=== PATIENT | female | born 1985 | race American Indian/Alaskan Native ===

== ENCOUNTER 2016-12-20 21:32 | Emergency (ER) | payer MEDICAID ==
[2016-12-21 00:04] VITALS: BP 145/98
[2016-12-21] MEDS ORDERED: TYLENOL PO ONE (00:24)
[2016-12-21 00:44] LABS: Basophils % (Auto) 0.1 % (0.0-1.8); Eosinophils % (Auto) 0.6 % (0.0-4.3); Hematocrit 43.8 % (30.3-42.9); Hemoglobin 14.4 gm/dl (10.1-14.3); Mean Corpuscular HGB Conc 33 % (30-34); Mean Corpuscular Hemoglobin 31 pg (28-32); Mean Corpuscular Volume 95 fl (79-97); Platelet Count 256 K/mm3 (140-440); Red Blood Count 4.63 M/mm3 (3.65-5.03); White Blood Count 13.6 K/mm3 (4.5-11.0)
--- NOTE | 2016-12-21 01:41 | Ultrasound Report ---
FINAL REPORT PROCEDURE: US OB \T\lt; = 14 WEEKS FETUS TECHNIQUE: Real-time transabdominal and transvaginal sonography of the uterus, placenta, amniotic fluid, adnexa, and fetus was performed with image documentation. Measurements were obtained to determine age/size. M-mode Doppler was used to document heartbeat. CPT 79493 and 99181 HISTORY: abdominal pain/Fell COMPARISON: No prior studies are available for comparison. FINDINGS: ADDITIONAL GESTATION: None. CRL: 20.9 mm, which corresponds to a gestational age of: 8 weeks, 6 days. Yolk Sac: Normal. Embryonic Cardiac Activity: 173 beats per minute Gestational Sac: There is a small subchorionic bleed identified. Amniotic fluid: Normal. Cervix: Normal. Right Ovary: Normal. Left Ovary: Normal. Estimated delivery date: 07/28/2017 Uterus and adnexa: Normal. IMPRESSION: 1. Single live intrauterine gestation at approximately 8 weeks, 6 days. 2. EDC by US 07/28/2017 3. Complete anatomic survey at 18-20 weeks suggested.
--- NOTE | 2016-12-21 01:42 | Ultrasound Report ---
FINAL REPORT PROCEDURE: PROCEDURE: US OB \T\lt; = 14 WEEKS FETUS TECHNIQUE: Real-time transabdominal and transvaginal sonography of the uterus, placenta, amniotic fluid, adnexa, and fetus was performed with image documentation. Measurements were obtained to determine age/size. M-mode Doppler was used to document heartbeat. CPT 59073 and 16504 HISTORY: abdominal pain/Fell COMPARISON: No prior studies are available for comparison. FINDINGS: ADDITIONAL GESTATION: None. CRL: 20.9 mm, which corresponds to a gestational age of: 8 weeks, 6 days. Yolk Sac: Normal. Embryonic Cardiac Activity: 173 beats per minute Gestational Sac: There is a small subchorionic bleed identified. Amniotic fluid: Normal. Cervix: Normal. Right Ovary: Normal. Left Ovary: Normal. Estimated delivery date: 07/28/2017 Uterus and adnexa: Normal. IMPRESSION: 1. Single live intrauterine gestation at approximately 8 weeks, 6 days. 2. EDC by US 07/28/2017 3. Complete anatomic survey at 18-20 weeks suggested. TECHNIQUE: HISTORY: COMPARISON: FINDINGS: IMPRESSION:
--- NOTE | 2016-12-22 01:02 | ED Elopement Review ---
ED Pt Elopement review - Results review Lab results: Laboratory Tests 12/21/16 12/21/16 12/21/16 00:31 00:31 00:31 WBC 13.6 H RBC 4.63 Hgb 14.4 H Hct 43.8 H MCV 95 MCH 31 MCHC 33 RDW 15.0 Plt Count 256 Lymph % (Auto) 14.4 [place] % (Auto) 6.1 Eos % (Auto) 0.6 Baso % (Auto) 0.1 Lymph # 2.0 [place] # 0.8 Eos # 0.1 Baso # 0.0 Seg Neutrophils % 78.8 H Seg Neutrophils # 10.7 H HCG, Quant 38548 H Blood Type O POSITIVE Antibody Screen Negative - Call Back decision Pt Call Back Decision: Pt to F/U with PMD
== END 2016-12-21 04:50 | disposition left against medical advice (07) ==
LOC: ED 21:32
DX: O9A.211 Injury, poisoning and certain other consequences of external causes complicating pregnancy, first trimester (principal); R10.9 Unspecified abdominal pain; Z3A.10 10 weeks gestation of pregnancy
CPT/HCPCS: 36415; 76801; 76817; 84702; 85025; 86850; 86900; 86901

== ENCOUNTER 2017-03-03 22:28 | Emergency (ER) | payer MEDICAID ==
[2017-03-03] MEDS ORDERED: ZOFRAN ODT ONE (23:31)
[2017-03-03] MEDS ORDERED: ZOFRAN PO ONE ×2 (23:34→23:45)
[2017-03-03] MEDS ORDERED: ZOFRAN ODT PO ONE (23:39)
[2017-03-03 23:51] LABS: Basophils % (Auto) 0.3 % (0.0-1.8); Eosinophils % (Auto) 0.4 % (0.0-4.3); Hematocrit 40.1 % (30.3-42.9); Hemoglobin 13.4 gm/dl (10.1-14.3); Mean Corpuscular HGB Conc 34 % (30-34); Mean Corpuscular Hemoglobin 32 pg (28-32); Mean Corpuscular Volume 94 fl (79-97); Platelet Count 224 K/mm3 (140-440); Red Blood Count 4.27 M/mm3 (3.65-5.03); Red Cell Distribution Width 13.7 % (13.2-15.2); White Blood Count 12.4 K/mm3 (4.5-11.0)
[2017-03-04 00:09] LABS: Anion Gap 18 mmol/L; Blood Urea Nitrogen 6 mg/dL (7-17); Calcium 9.4 mg/dL (8.4-10.2); Carbon Dioxide 21 mmol/L (22-30); Chloride 98.3 mmol/L (98-107); Glucose 112 mg/dL (65-100); Potassium 3.6 mmol/L (3.6-5.0); Sodium 134 mmol/L (137-145)
[2017-03-04 00:46] LABS: Amylase 96 units/L (27-131); Lipase 35 units/L (13-60)
[2017-03-04] MEDS ORDERED: NACL 0.9% 1000 ML 1,000 ML IV ONE (02:35)
--- NOTE | 2017-03-04 03:22 | Emergency Department Report ---
HPI - General Chief Complaint: Nausea/Vomiting/Diarrhea Time Seen by Provider: 03/04/17 02:25 - HPI HPI: 31-year-old female presents today complaining of nausea and vomiting 2 days. Patient is currently 19 weeks and this is her first . Patient has a follow-up appointment with [employer] . Patient is currently taking promethazine without relief. Denies fever, chills, chest pain, shortness of breath, abdominal pain, vaginal bleeding or discharge, burning upon urination, increased urinary frequency or urgency, blood in urine. ED Past Medical Hx - Past Medical History Previous Medical History?: Yes Hx Asthma: Yes - Surgical History Past Surgical History?: No - Social History Smoking Status: Never Smoker Substance Use Type: None - Medications Home Medications: Home Medications Medication Instructions Recorded Confirmed Last Taken Type Doxylamine/Pyridoxine HCl 2 each PO QHS #40 tablet. 03/04/17 Unknown Rx [Ryne Aguiar 10-10 mg Tablet] ED Review of Systems ROS: Stated complaint: 19WKS PREG/NAUSEA/VOMITING Other details as noted in HPI Constitutional: denies: chills, fever, malaise Eyes: denies: eye pain ENT: denies: ear pain, throat pain, congestion Respiratory: denies: cough, shortness of breath, wheezing Cardiovascular: denies: chest pain, palpitations Endocrine: no symptoms reported Gastrointestinal: nausea, vomiting. denies: abdominal pain Genitourinary: denies: urgency, dysuria, frequency, hematuria, discharge, other (baginal bleeding) Neurological: denies: headache, weakness Physical Exam - Physical Exam Vital Signs: Vital Signs 03/03/17 23:20 Temperature 98.6 F Pulse Rate 110 H Respiratory 18 Rate Blood Pressure 128/89 Blood Pressure 128/89 [Left] O2 Sat by Pulse 97 Oximetry Physical Exam: GENERAL: The patient is well-developed and well-nourished. Patient is in NAD. HEAD: Normocephalic. Atraumatic. EYES: PERRL. NOSE: Normal nasal mucosa with no nasal discharge. THROAT: No erythema, swelling or exudates. Dry mucous membrane. NECK: Supple, nontender, without lymphadenopathy. CHEST/LUNGS: Clear to auscultation throughout. HEART/CARDIOVASCULAR: Regular rate and rhythm. No murmurs, rubs or gallops. ABDOMEN: Abdomen is gravid, nontender. Bowel sounds normoactive. No guarding or rebound tenderness. EXTREMITIES: Peripheral pulses intact. Capillary refill less than 2 seconds. NEURO: Alert and oriented x 3. Normal gait. ED Course Vital Signs 03/03/17 23:20 Temperature 98.6 F Pulse Rate 110 H Respiratory 18 Rate Blood Pressure 128/89 Blood Pressure 128/89 [Left] O2 Sat by Pulse 97 Oximetry - Reevaluation(s) Reevaluation #1: 03/04/17 03:56 At time of reevaluation, patient reports some symptomatic relief. ED Medical Decision Making - Lab Data Result diagrams: 03/03/17 23:35 03/03/17 23:35 Vital Signs 03/03/17 03/04/17 23:20 03:39 Temperature 98.6 F Pulse Rate 110 H 95 H Respiratory 18 18 Rate Blood Pressure 128/89 Blood Pressure 128/89 120/80 [Left] O2 Sat by Pulse 97 99 Oximetry Lab Results 03/03/17 03/03/17 03/03/17 Range/Units 23:35 23:35 23:35 WBC 12.4 H (4.5-11.0) K/mm3 RBC 4.27 (3.65-5.03) M/mm3 Hgb 13.4 (10.1-14.3) gm/dl Hct 40.1 (30.3-42.9) % MCV 94 (79-97) fl MCH 32 (28-32) pg MCHC 34 (30-34) % RDW 13.7 (13.2-15.2) % Plt Count 224 (140-440) K/mm3 Lymph % (Auto) 18.1 (13.4-35.0) % [place] % (Auto) 7.8 H (0.0-7.3) % Eos % (Auto) 0.4 (0.0-4.3) % Baso % (Auto) 0.3 (0.0-1.8) % Lymph # 2.2 (1.2-5.4) K/mm3 [place] # 1.0 H (0.0-0.8) K/mm3 Eos # 0.1 (0.0-0.4) K/mm3 Baso # 0.0 (0.0-0.1) K/mm3 Seg Neutrophils % 73.4 H (40.0-70.0) % Seg Neutrophils # 9.1 H (1.8-7.7) K/mm3 Sodium 134 L (137-145) mmol/L Potassium 3.6 (3.6-5.0) mmol/L Chloride 98.3 (98-107) mmol/L Carbon Dioxide 21 L (22-30) mmol/L Anion Gap 18 mmol/L BUN 6 L (7-17) mg/dL Creatinine 0.6 L (0.7-1.2) mg/dL Estimated GFR > 60 ml/min BUN/Creatinine Ratio 10.00 % Glucose 112 H (65-100) mg/dL Calcium 9.4 (8.4-10.2) mg/dL Amylase 96 (27-131) units/L Lipase 35 (13-60) units/L - Medical Decision Making 31-year-old female presents today with nausea and vomiting during . Patient was given IV fluids and Zofran and reported some symptomatic relief post medication and fluid administration. Patient is recommended to follow up with her [facility]. Patient is in no acute distress at this time. She will be discharged home and is encouraged to follow up with a primary care provider. She will be sent home on Diclegis and is encouraged to return to the emergency room for any worsening symptoms. Critical care attestation.: If time is entered above; I have spent that time in minutes in the direct care of this critically ill patient, excluding procedure time. ED Disposition Clinical Impression: Nausea and vomiting during Disposition: DISCHARGED TO HOME OR SELFCARE Is pt being admited?: No Does the pt Need Aspirin: No Condition: Stable Instructions: Morning Sickness (ED), Acute Nausea and Vomiting (ED), (ED) Additional Instructions: Follow-up with [facility]. Return to the emergency department if symptoms worsen. Prescriptions: Doxylamine/Pyridoxine HCl [Ryne Aguiar 10-10 mg Tablet] 2 each PO QHS #40 tablet. Referrals: MARCI SIMPSON MD [Primary Care Provider] - 3-5 Days HERMANN VALENTIN MD [Staff Physician] - 3-5 Days Forms: Work/School Release Form(ED) Time of Disposition: 03:55
[2017-03-04 03:40] VITALS: BP 120/80
== END 2017-03-04 04:15 | disposition home or self-care (01) ==
LOC: ED 22:28
DX: O21.9 Vomiting of pregnancy, unspecified (principal); R11.0 Nausea; O99.512 Diseases of the respiratory system complicating pregnancy, second trimester; Z3A.19 19 weeks gestation of pregnancy
CPT/HCPCS: 36415; 80048; 82150; 83690; 85025; 96360; 99283; J7030; Q0162

== ENCOUNTER 2017-03-19 13:29 | Outpatient (CLI) | payer MEDICAID ==
[2017-03-19] MEDS ORDERED: LACTATED RINGERS 1,000 ML IV ONE (14:02)
[2017-03-19] MEDS ORDERED: ZOFRAN IV ONE (14:02)
[2017-03-19] MEDS ORDERED: LOMOTIL PO ONE (14:02)
[2017-03-19 14:37] LABS: Bilirubin,Urine NEG (Negative); Blood,Urine NEG (Negative); Ketones,Urine 20 mg/dL (Negative); Leukocyte Esterase,Urine NEG (Negative); Mucus,Urine 1+ /HPF; Nitrite,Urine NEG (Negative); Urobilinogen,Urine < 2.0 mg/dL (<2.0)
[2017-03-19 15:04] LABS: Basophils % (Auto) 0.3 % (0.0-1.8); Eosinophils % (Auto) 0.4 % (0.0-4.3); Hematocrit 41.5 % (30.3-42.9); Hemoglobin 13.8 gm/dl (10.1-14.3); Mean Corpuscular HGB Conc 33 % (30-34); Mean Corpuscular Hemoglobin 32 pg (28-32); Mean Corpuscular Volume 96 fl (79-97); Platelet Count 227 K/mm3 (140-440); Red Blood Count 4.31 M/mm3 (3.65-5.03); White Blood Count 11.8 K/mm3 (4.5-11.0)
[2017-03-19 15:23] LABS: Alanine Aminotransferase 33 units/L (7-56); Albumin 3.9 g/dL (3.9-5); Albumin/Globulin Ratio 1.3 %; Alkaline Phosphatase 79 units/L (35-129); Anion Gap 19 mmol/L; Blood Urea Nitrogen 5 mg/dL (7-17); Calcium 9.6 mg/dL (8.4-10.2); Carbon Dioxide 23 mmol/L (22-30); Chloride 98.3 mmol/L (98-107); Glucose 98 mg/dL (65-100); Potassium 4.6 mmol/L (3.6-5.0); Sodium 136 mmol/L (137-145); Total Protein 6.8 g/dL (6.3-8.2)
[2017-03-19] MEDS ORDERED: TYLENOL PO ONE (15:40)
[2017-03-20 12:13] VITALS: BP 112/67
== END 2017-03-19 16:40 | disposition home or self-care (01) ==
LOC: TRG 13:29
PROVIDERS: ATTEND Obstetrics & Gynecology
DX: Z34.92 Encounter for supervision of normal pregnancy, unspecified, second trimester (principal); Z3A.21 21 weeks gestation of pregnancy
CPT/HCPCS: 36415; 80053; 81001; 85025; 96360; 96374; J2405; J7120

== ENCOUNTER 2017-05-30 19:58 | Emergency (ER) | payer MEDICAID ==
[2017-05-30] MEDS ORDERED: NACL 0.9% 1000 ML 1,000 ML IV ONE (20:31)
[2017-05-30] MEDS ORDERED: ZOFRAN IV ONE (20:31)
--- NOTE | 2017-05-30 20:33 | Emergency Department Report ---
HPI - General Chief Complaint: Nausea/Vomiting/Diarrhea Time Seen by Provider: 05/30/17 20:21 - HPI HPI: This is a 31-year-old Afro-[place] female presents to the emergency department by EMS from home with complaint of nausea and vomiting and some mild lower abdominal discomfort while over the past few days. The patient is at about 31 weeks. She has been using Zofran that her secondary to some hyperemesis episodes but she ran out 2 days ago. She called her [employer] at my [employer] and was told to come to the emergency department for further evaluation. She had 4 episodes of vomiting today and the last one lead to a small amount of hematemesis. She denies any vaginal bleeding, vaginal discharge , dysuria, fever. She otherwise only has a past medical history of asthma. Her [employer] is Dr. Estrada. No recent travel or sick contacts at home. ED Past Medical Hx - Past Medical History Previous Medical History?: Yes Hx Hypertension: No Hx Diabetes: No Hx Deep Vein Thrombosis: No Hx Renal Disease: No Hx Sickle Cell Disease: No Hx Seizures: No Hx Asthma: Yes Hx HIV: No Additional medical history: Hyperemesis gravidarum - Surgical History Past Surgical History?: No - Social History Smoking Status: Never Smoker Substance Use Type: None - Medications Home Medications: Home Medications Medication Instructions Recorded Confirmed Last Taken Type Vit-Fe Fumar-FA [ 1 tab PO QDAY 03/19/17 03/19/17 03/18/17 09: 00 History Vitamin] 1 Zofran ODT TAB 1 tab PO Q8H PRN #12 05/31/17 Unknown Rx ED Review of Systems ROS: Stated complaint: VOMITING Other details as noted in HPI Comment: All other systems reviewed and negative Constitutional: denies: chills, fever Eyes: denies: eye pain, eye discharge, vision change ENT: denies: ear pain, throat pain Respiratory: denies: cough, shortness of breath, wheezing Cardiovascular: denies: chest pain, palpitations Gastrointestinal: abdominal pain, nausea, vomiting, hematemesis Genitourinary: denies: urgency, dysuria, discharge Musculoskeletal: denies: back pain, joint swelling, arthralgia Skin: denies: rash, lesions Neurological: denies: headache, weakness, paresthesias Physical Exam - Physical Exam Vital Signs: Vital Signs 05/30/17 20:09 Temperature 98.0 F Pulse Rate 101 H Respiratory 17 Rate Blood Pressure 139/86 [Left] O2 Sat by Pulse 100 Oximetry Physical Exam: GENERAL: The patient is well-developed well-nourished. HEENT: Normocephalic. Atraumatic. Extraocular motions are intact. Patient has moist mucous membranes. Pupils equal reactive to light bilaterally. NECK: Supple. Trachea is midline. CHEST/LUNGS: Clear to auscultation. There is no respiratory distress noted. HEART/CARDIOVASCULAR: Regular. There is no tachycardia. There is no gallop rub or murmur. ABDOMEN: Abdomen is soft, nontender. Patient has normal bowel sounds. There is no abdominal distention. Gravid uterus is palpable to the mid upper abdomen. SKIN: Skin is warm and dry. NEURO: The patient is awake, alert, and oriented. The patient is cooperative. The patient has no focal neurologic deficits. The patient has normal speech. MUSCULOSKELETAL: There is no tenderness or deformity. There is no limitation range of motion. There is no evidence of acute injury. ED Course Vital Signs 05/30/17 20:09 Temperature 98.0 F Pulse Rate 101 H Respiratory 17 Rate Blood Pressure 139/86 [Left] O2 Sat by Pulse 100 Oximetry ED Medical Decision Making - Lab Data Result diagrams: 05/30/17 23:23 05/30/17 23:23 - Radiology Data Radiology results: report reviewed Right upper quadrant abdominal ultrasound shows layering gallbladder sludge without wall thickening or additional evidence of cholecystitis. Obstetric ultrasound shows a single living intrauterine at about 32 weeks and 4 days. No evidence of acute complications. - Medical Decision Making 31-year-old female with a history of hyperemesis presents with nausea and vomiting since she has run out of her Zofran. Her labs are grossly unremarkable. Obstetric ultrasound shows a live intrauterine at 32 weeks. Right upper quadrant ultrasound shows some gallbladder sludge but no signs of cholecystitis. Vital signs stable throughout ED course. She given some IV fluid and a dose of Zofran. She has now been able to keep down 2 glasses of water without any recurrence of nausea or vomiting. She will follow- up with her [employer] on Thursday. - Differential Diagnosis , hyperemesis, miscarriage, food poisoning Critical Care Time: No Critical care attestation.: If time is entered above; I have spent that time in minutes in the direct care of this critically ill patient, excluding procedure time. ED Disposition Clinical Impression: Hyperemesis gravidarum, Gallbladder sludge Qualifiers: Weeks of gestation: 32 weeks Qualified Code(s): Z3A.32 - 32 weeks gestation of Disposition: TO HOME OR SELFCARE Is pt being admited?: No Condition: Stable Instructions: (ED), Hyperemesis Gravidarum (ED) Additional Instructions: Please follow-up with your [employer] on Thursday. Return to the emergency department with the inability to keep down fluids and stay hydrated, worsening of your symptoms, or any acute distress. Prescriptions: Zofran ODT TAB 1 tab PO Q8H PRN #12 PRN Reason: Nausea Referrals: MARCI SIMPSON MD [Staff Physician] - [facility] Time of Disposition: 01:48
--- NOTE | 2017-05-30 21:26 | Ultrasound Report ---
FINAL REPORT EXAM: US ABDOMEN LIMITED HISTORY: abd pain, N/V COMPARISONS: None FINDINGS: Grayscale ultrasound evaluation of the right upper abdomen Liver is normal in size and contour. Hepatic parenchymal echogenicity is within normal limits. No parenchymal lesion identified. No intra or extrahepatic biliary ductal dilatation. The common duct measures approximately 4 millimeters in caliber. Layering gallbladder sludge is present without focal echogenic shadowing stone identified. Gallbladder wall measures approximately 1-2 millimeters. Imaged portion of the pancreatic head is sonographically unremarkable. The remainder of the pancreas is not well seen secondary to overlying bowel gas. Imaged portions of the aorta and inferior vena cava are within normal limits. No abdominal ascites or free fluid in Morison's pouch. The right kidney measures up to 11.5 cm in length and is without hydronephrosis or echogenic shadowing foci to suggest nephrolithiasis. IMPRESSION: Layering gallbladder sludge without wall thickening or additional evidence of cholecystitis. Consider nuclear medicine hepatobiliary scan for more specific evaluation as warranted.
--- NOTE | 2017-05-30 21:55 | Ultrasound Report ---
FINAL REPORT EXAM: US OB FOLLOW UP HISTORY: Preg, abd pain COMPARISONS: Limited abdominal ultrasound of the same date, pelvic ultrasound 12/21/2016 FINDINGS: Limited transabdominal 3rd trimester ultrasound Single living intrauterine with recorded cardiac activity of 156 beats per minute. Composite measurements correspond to estimated gestational age of 32 weeks 4 days and delivery date of 07/21/2017, which are concordant with 1st trimester ultrasound dating. The cervix appears closed and measures approximately 3.4 cm in length. Amniotic fluid volume is subjectively normal and amniotic fluid index measures approximately 9 cm. Presentation is cephalic. No evidence of placenta previa on this examination. IMPRESSION: Single living intrauterine with concordant size and dates and no evident acute complication.
[2017-05-30 23:25] LABS: Bacteria,Urine 1+ /HPF (Negative); Bilirubin,Urine NEG (Negative); Blood,Urine NEG (Negative); Ketones,Urine 20 mg/dL (Negative); Leukocyte Esterase,Urine NEG (Negative); Mucus,Urine FEW /HPF; Nitrite,Urine NEG (Negative); Urobilinogen,Urine < 2.0 mg/dL (<2.0); WBC,Urine < 1.0 /HPF (0.0-6.0)
[2017-05-31 00:37] LABS: Basophils % (Auto) 0.1 % (0.0-1.8); Eosinophils % (Auto) 0.5 % (0.0-4.3); Hematocrit 35.2 % (30.3-42.9); Mean Corpuscular HGB Conc 34 % (30-34); Mean Corpuscular Hemoglobin 33 pg (28-32); Mean Corpuscular Volume 97 fl (79-97); Platelet Count 184 K/mm3 (140-440); Red Blood Count 3.64 M/mm3 (3.65-5.03); Red Cell Distribution Width 13.7 % (13.2-15.2); White Blood Count 8.7 K/mm3 (4.5-11.0)
[2017-05-31 01:03] LABS: Alanine Aminotransferase 10 units/L (7-56); Albumin 3.4 g/dL (3.9-5); Albumin/Globulin Ratio 1.2 %; Alkaline Phosphatase 86 units/L (35-129); Anion Gap 18 mmol/L; Blood Urea Nitrogen 4 mg/dL (7-17); Calcium 8.8 mg/dL (8.4-10.2); Carbon Dioxide 20 mmol/L (22-30); Chloride 100.2 mmol/L (98-107); Glucose 83 mg/dL (65-100); Potassium 3.3 mmol/L (3.6-5.0); Sodium 135 mmol/L (137-145); Total Protein 6.2 g/dL (6.3-8.2)
[2017-05-31] MEDS ORDERED: NACL 0.9% 500 ML 500 ML IV ONE (01:07)
[2017-05-31] MEDS ORDERED: K-DUR PO ONE (01:08)
[2017-05-31 01:55] VITALS: BP 114/66
== END 2017-05-31 02:06 | disposition home or self-care (01) ==
LOC: ED 19:58
DX: O21.0 Mild hyperemesis gravidarum (principal); O26.893 Other specified pregnancy related conditions, third trimester; K82.9 Disease of gallbladder, unspecified; J45.909 Unspecified asthma, uncomplicated; Z3A.32 32 weeks gestation of pregnancy
CPT/HCPCS: 36415; 76705; 76816; 80053; 81001; 81025; 83690; 85025; 96361; 96374; 99284; J2405; J7040

== ENCOUNTER 2021-10-17 08:36 | Observation (INO) | payer MEDICAID ==
[2021-10-17] MEDS ORDERED: ONDANSETRON 4 MG/2 ML INJ IV PRN (08:38)
[2021-10-17] MEDS ORDERED: PROMETHAZINE 25 MG RECT SUPP PR SCH (09:00)
[2021-10-17] MEDS ORDERED: POTASSIUM CHLORIDE 10 MEQ 10 MEQ/100 ML BAG IV PRN (09:00)
[2021-10-17] MEDS ORDERED: D5W/LACTATED RINGERS 1,000 ML IV SCH (09:00)
[2021-10-17] MEDS ORDERED: PRENATAL VIT27-FE FUMARATE-FOLIC ACID VIT TAB PO SCH (10:00)
[2021-10-17] MEDS: D5W/LACTATED RINGERS 1,000 ML IV SCH ×2 (11:30→18:20)
[2021-10-17] MEDS: METOCLOPRAMIDE 10 MG/2 ML INJ IV SCH (11:31)
[2021-10-17] MEDS ORDERED: ACETAMINOPHEN 500 MG TAB PO ONE (12:00)
--- NOTE | 2021-10-17 12:33 | History and Physical Report ---
History of Present Illness Date of examination: 10/17/21 Date of admission: 10/17/21 09:36 Chief complaint: I can't keep food or water down History of present illness: Pt is a 35 year old AMILCAR 04/23/2022 at 13w1d presents from home with complaint of nausea,vomiting, and inability to tolerate solids or liquids for the past two days. She reports that she typically takes Zofran daily, but ran out 2 days ago. She also reports nasal congestion, stuffy nose and cough. She has had one visit at [facility] on 10/03/21 with a h/o morbid obesity, genital herpes, previous x2. She denies vaginal bleeding. She does report that her daughter "is getting over a cold," and she recently developed cold symptoms. RN report pt has a temp of ~102 on admission. Past History Past Medical History: asthma Past Surgical History: section Social history: no significant social history - Obstetrical History Expected Date of Delivery: 04/23/22 Actual Gestation: 13 Week(s) 1 Day(s) : 3 Para: 2 Hx # Term Pregnancies: 2 Number of Pregnancies: 0 Spontaneous Abortions: 0 Induced : 0 Number of Living Children: 2 Medications and Allergies Allergies Allergy/AdvReac Type Severity Reaction Status Date / Time No Known Allergies Allergy Verified 03/19/17 13:57 Home Medications Medication Instructions Recorded Confirmed Last Taken Type Low Iron Tablet 325 PO DAILY 08/19/19 Unknown History Docusate Sodium [Colace] 100 mg PO BID PRN #60 capsule 08/20/19 Unknown Rx Ibuprofen [Motrin] 800 mg PO Q8HR PRN #40 tablet 08/20/19 Unknown Rx oxyCODONE /ACETAMINOPHEN [Percocet 2 tab PO Q6HR PRN #40 tablet 08/20/19 Unknown Rx 5/325] Active Meds: Active Medications Dextrose/Lactated Ringer's (D5lr) 1,000 mls @ 500 mls/hr IV DIRECT DORIS Stop: 10/18/21 10:59 Dextrose/Lactated Ringer's (D5lr) 1,000 mls @ 150 mls/hr IV DIRECT DORIS Last Admin: 10/17/21 11:30 Dose: 150 mls/hr Documented by: Potassium Chloride (Kcl 10meq/100ml) 10 meq in 100 mls @ 100 mls/hr IV Q1H PRN PRN Reason: SEE COMMENTS Metoclopramide HCl (Metoclopramide 10 Mg/2 Ml Inj) 10 mg IV Q6H [facility] Last Admin: 10/17/21 11:31 Dose: 10 mg Documented by: Multivitamins/Iron/Calcium ( [id number] Fumarate-Folic Acid Vit Tab) 1 each PO QDAY DORIS Ondansetron HCl (Ondansetron 4 Mg/2 Ml Inj) 4 mg IV Q6H PRN PRN Reason: N/V unrelieved by Regxander Promethazine HCl (Promethazine 25 Mg Rect Supp) 25 mg IA Q6H DORIS Review of Systems All systems: negative Constitutional: fatigue, weakness Eyes: deferred Ears, nose, mouth and throat: nasal congestion, hoarseness Respiratory: cough, no shortness of breath Breasts: deferred Gastrointestinal: nausea, vomiting - Physical Exam Breasts: Positive: deferred Abdomen: Positive: soft (obesity ) Results All other labs normal. Assessment and Plan A: IUP at 13w1d Hyperemesis Febrile morbidity, nasal congestion, cough Morbid Obesity Asthma P: Admit for observation COVID test when available, make PUI until then given recent increase in Omicron variant numbers CBC, BMP, Hepatitis panel, TSH, amylase, lipase CXR, blood culture, urine culture IV fluids Antiemetics PRN Closely monitor clinical status
--- NOTE | 2021-10-17 12:56 | XRay Report ---
CHEST 1 VIEW 10/17/2021 11:43 AM INDICATION / CLINICAL INFORMATION: cough, fever, congestion. COMPARISON: None available. FINDINGS: SUPPORT DEVICES: None. HEART / MEDIASTINUM: No significant abnormality. LUNGS / PLEURA: No significant pulmonary or pleural abnormality. No pneumothorax. ADDITIONAL FINDINGS: No significant additional findings. IMPRESSION: No acute abnormality. Signer Name: Stas Choi MD Signed: 10/17/2021 12:51 PM Workstation Name: [id number]
[2021-10-17] MEDS ORDERED: FLU VACC QUAD 2021-22(6MOS UP)/PF 60 MCG/0.5 ML SYRINGE IM ONE (12:58)
--- NOTE | 2021-10-17 15:55 | Ultrasound Report ---
ULTRASOUND OBSTETRIC INDICATION / CLINICAL INFORMATION: IUP at 13 wks, hyper. Clinical Gestational Age (GA) in weeks, days: 13 weeks 1 day TECHNIQUE: Transabdominal. COMPARISON: None available. FINDINGS: GESTATIONAL SAC: Well-defined oval shape and intrauterine in location. YOLK SAC: Not identified, likely due to age. EMBRYO/FETUS: No significant abnormality. - [place]-Rump Length = 7.9 cm = 13.6 weeks, days - Heart Rate, beats per minute (if present) = 176 BPM ADNEXA: No significant abnormality. FREE FLUID: None. ADDITIONAL FINDINGS: Placenta is anterior grade 0 and low lying. IMPRESSION: 1. Single, living intrauterine with estimated sonographic age of 13.6 weeks, days. 2. Low lying placenta. Scribed by: Renetta Delgado RDMS, RVT Scribed: 10/17/2021 2:38 PM I have reviewed the images, agree with this report, and edited this report as needed. Signer Name: Stas Choi MD Signed: 10/17/2021 3:51 PM Workstation Name: [id number]
[2021-10-17 16:44] LABS: Hematocrit 40.1 % (30.3-42.9); Hemoglobin 13.2 gm/dl (10.1-14.3); Mean Corpuscular HGB Conc 33 % (30-34); Mean Corpuscular Volume 94 fl (79-97); Red Blood Count 4.26 M/mm3 (3.65-5.03); Red Cell Distribution Width 13.4 % (13.2-15.2)
[2021-10-17 16:47] LABS: Blood Urea Nitrogen 6 mg/dL (7-17); Calcium 8.5 mg/dL (8.4-10.2); Hemolysis Index 18
[2021-10-17 16:51] LABS: BUN/Creatinine Ratio 12
[2021-10-17 17:14] LABS: Hepatitis C Virus Antibody Non-Reactive (NonReactive)
[2021-10-17 17:24] LABS: Platelet Count 195 K/mm3 (140-440)
[2021-10-17 17:53] LABS: Hepatitis B Surface Antigen Nonreactive (Negative)
[2021-10-17 18:30] LABS: Platelet Clumps Rare; RBC Morphology Normal; Total Cells Counted 100
[2021-10-17] MEDS ORDERED: ACETAMINOPHEN 325 MG TAB PO PRN (19:01)
[2021-10-18] MEDS: METOCLOPRAMIDE 10 MG/2 ML INJ IV SCH ×2 (00:07→09:24)
[2021-10-18] MEDS: D5W/LACTATED RINGERS 1,000 ML IV SCH (03:54)
[2021-10-18 09:15] VITALS: BP 129/80
--- NOTE | 2021-10-18 10:06 | Discharge Summary ---
Providers - Providers Date of Admission: 10/17/21 09:36 Date of discharge: 10/18/21 Attending physician: LINO RICO 10/17/21 08:39 Consult to Dietitian/Nutrition [CONS] Routine Physician Instructions: Reason For Exam: Reason for Consult: hyper grav Reason for Consult: hyperemesis Primary care physician: LINO RICO Hospitalization Reason for admission: other (hyperemesis) Discharge diagnosis: other (hyperemesis) Hospital course: Pt admitted for hyperemesis and cold symptoms. Pt refused covid testing and also refused potassium via IV. Pt is requesting discharge Condition at discharge: Stable Disposition: 01 HOME / SELF CARE / HOMELESS Plan - Provider Discharge Summary Activity: routine Diet: routine Instructions: routine Additional instructions: [] Smoking cessation referral if applicable(refer to patient education folder for contact #) [] Refer to [facility] Booklet Call your doctor immediately for: * Fever > 100.5 * Heavy vaginal bleeding ( >1 pad per hour) * Severe persistent headache * Shortness of breath * Reddened, hot, painful area to leg or breast * Drainage or odor from incision. * Keep incision clean and dry at all times and follow doctor's instructions regarding bathing/showering - Follow up plan Follow up: LINO RICO MD [Primary Care Provider] - 14 Days
[2021-10-18] MEDS ORDERED: FLU VACC QUAD 2021-22(6MOS UP)/PF 60 MCG/0.5 ML SYRINGE IM ONE (12:00)
== END 2021-10-18 12:20 | disposition home or self-care (01) ==
LOC: 3A 08:36 → UNDOADMOB 08:36 → OB 09:36
PROVIDERS: ADMIT Obstetrics & Gynecology; ATTEND Obstetrics & Gynecology
DX: O21.9 Vomiting of pregnancy, unspecified (principal); O99.511 Diseases of the respiratory system complicating pregnancy, first trimester; J45.909 Unspecified asthma, uncomplicated; O99.211 Obesity complicating pregnancy, first trimester; E66.01 Morbid (severe) obesity due to excess calories; O26.891 Other specified pregnancy related conditions, first trimester; R09.81 Nasal congestion; R05.9 Cough, unspecified; R69 Illness, unspecified; Z98.891 History of uterine scar from previous surgery; Z3A.13 13 weeks gestation of pregnancy; Z79.899 Other long term (current) drug therapy; Z98.890 Other specified postprocedural states
CPT/HCPCS: 36415; 71045; 76801; 80048; 80074; 82010; 82150; 83690; 84443; 85025; 87040; 87086; 96361; 96374; 96376; G0378; G0379; J2765; J3480; J7121; 85007; 90686; J7060